=== PATIENT | male | born 1995 | race Caucasian/White ===

== ENCOUNTER 2017-09-30 17:41 | Emergency (ER) | payer MEDICAID, OTHER ==
[~2017-09-30] VITALS: Ht 1827.3 cm; Wt 70.0 kg
[2017-09-30 18:21] LABS: BASOPHILS % (AUTO) 0.4 % (0-1); EOSINOPHILS # (AUTO) 0.1 X10'3 (0-0.9); EOSINOPHILS % (AUTO) 1.7 % (0-6); HEMATOCRIT 47.9 % (42.0-52.0); HEMOGLOBIN 16.5 g/dl (14.0-17.9); LYMPHOCYTES # (AUTO) 2.5 X10'3 (1.1-4.8); LYMPHOCYTES % (AUTO) 29.6 % (21-51); MEAN CORPUSCULAR HEMOGLOBIN 31.1 PG (27.0-31.0); MEAN CORPUSCULAR HGB CONC 34.4 % (33.0-36.5); MEAN CORPUSCULAR VOLUME 90.5 FL (78-98); MEAN PLATELET VOLUME 7.3 FL (7.4-10.4); MONOCYTES # (AUTO) 0.7 X10'3 (0-0.9); MONOCYTES % (AUTO) 7.8 % (2-12); NEUTROPHILS # (AUTO) 5.2 X10'3 (1.8-7.7); NEUTROPHILS % (AUTO) 60.5 % (42-75); PLATELET COUNT 256 X10'3 (140-440); RED BLOOD COUNT 5.29 X10'6 (4.70-6.10); RED CELL DISTRIBUTION WIDTH 13.4 % (11.5-14.5); WHITE BLOOD COUNT 8.6 X10'3 (4.5-11.0)
[2017-09-30 18:35] LABS: ALANINE AMINOTRANSFERASE 23 U/L (12-78); ALBUMIN/GLOBULIN RATIO 1.2 (1.1-1.5); ALKALINE PHOSPHATASE 95 IU/L (46-116); ANION GAP 10 (8-16); ASPARTATE AMINO TRANSFERASE 16 U/L (10-37); BILIRUBIN,TOTAL 0.7 MG/DL (0.1-1.0); BLOOD UREA NITROGEN 15 MG/DL (7-18); BUN/CREATININE RATIO 14.9 (5.4-32.0); CALCIUM 9.3 MG/DL (8.5-10.1); CHLORIDE 108 MMOL/L (99-107); CREATININE 1.01 MG/DL (0.60-1.10); GLUCOSE 97 MG/DL (70-104); POTASSIUM 4.1 MMOL/L (3.5-5.1); SODIUM 145 MMOL/L (135-145); TOTAL CARBON DIOXIDE 27.2 MMOL/L (24-32); TOTAL PROTEIN 7.4 G/DL (6.4-8.2); eGFR > 90 ML/MIN
[2017-09-30 18:44] LABS: ETHANOL < 0.010 GM/DL (0.0-0.010)
[2017-09-30 20:56] LABS: CLARITY,URINE CLEAR (Clear); COLOR,URINE YELLOW (Yellow); GLUCOSE, URINE NEGATIVE (Neg); KETONES,URINE NEGATIVE (Neg); LEUKOCYTE ESTERASE ,URINE NEGATIVE (Neg); NITRITES, URINE NEGATIVE (Neg); OCCULT BLOOD,URINE NEGATIVE (Neg); PH,URINE 6.5 (4.8-8.0); PROTEIN,URINE NEGATIVE (Neg)
[2017-09-30 20:57] LABS: UA COLLECTION TYPE CLN CATCH MIDSTREAM
[2017-09-30 21:04] LABS: URINE AMPHETAMINE SCREEN NEGATIVE (Neg); URINE BARBITUATE SCREEN NEGATIVE (Neg); URINE BENZODIAZEPINES SCREEN POSITIVE (Neg); URINE CANNABINOID SCREEN NEGATIVE (Neg); URINE COCAINE SCREEN NEGATIVE (Neg); URINE METHADONE SCREEN NEGATIVE (Neg); URINE OPIATE SCREEN NEGATIVE (Neg); URINE PHENCYCLIDINE SCREEN NEGATIVE (Neg)
[2017-09-30] MEDS ORDERED: LORazepam 0.5 MG tablet PO PRN (21:30)
[2017-10-01] MEDS ORDERED: EMTR1TAB12 PO (01:23)
[2017-10-01] MEDS ORDERED: emtricitabine/tenofovir 200mg/300mg tablet PO SCH (08:00)
[2017-10-01] MEDS ORDERED: buproprion 150mg XL (24-hour) tablet PO SCH (08:00)
[2017-10-01] MEDS ORDERED: sertraline 50mg tablet PO SCH (08:00)
[2017-10-01] MEDS ORDERED: buPROPion SR 150mg tablet PO SCH (08:00)
[2017-10-01] MEDS ORDERED: DULO-31 PO (17:20)
[2017-10-01] MEDS ORDERED: emtricitabine/tenofovir 200mg/300mg tablet PO ONE (17:25)
[2017-10-01] MEDS ORDERED: duloxetine 30mg CAPSULE.DR PO ONE (17:35)
[2017-10-01] MEDS ORDERED: risperiDONE 2mg tablet PO SCH (21:00)
[2017-10-02] MEDS ORDERED: quetiapine 100mg tablet PO SCH (02:30)
[2017-10-02] MEDS ORDERED: duloxetine 30mg CAPSULE.DR PO SCH (08:00)
[2017-10-02] MEDS ORDERED: emtricitabine/tenofovir 200mg/300mg tablet PO SCH (08:00)
[2017-10-02 11:19] VITALS: BP 120/68
== END 2017-10-02 11:20 ==
LOC: ER 17:41
DX: T50.992A Poisoning by other drugs, medicaments and biological substances, intentional self-harm, initial encounter (principal); B00.9 Herpesviral infection, unspecified; F10.129 Alcohol abuse with intoxication, unspecified; Y92.9 Unspecified place or not applicable; Y90.9 Presence of alcohol in blood, level not specified
CPT/HCPCS: 36415; 80053; 80305; 80320; 81003; 84443; 85025; 99285

== ENCOUNTER 2021-12-11 10:04 | Outpatient (CLI) | payer BC ==
[~2021-12-11 10:04] MED LIST: DULO-31 PO; EMTR1TAB12 PO
[2021-12-12 09:03] LABS: EBV AB VCA, IGM <36.0 U/mL (0.0-35.9)
== END 2021-12-11 23:59 | disposition home or self-care (01) ==
LOC: LAB 10:04
PROVIDERS: ATTEND Physician Assistant
DX: Z20.828 Contact with and (suspected) exposure to other viral communicable diseases (principal)
CPT/HCPCS: 36415; 86663; 86664; 86665